=== PATIENT | male | born 2000 | race Caucasian/White ===

== ENCOUNTER 2023-02-13 10:19 | Emergency (ER) | payer MEDICAID ==
[2023-02-13] MEDS ORDERED: Ondansetron 4 MG Tab.DIS PO ONE (10:55)
[2023-02-13 11:29] LABS: CORONAVIRUS COVID-19 NAA NEGATIVE (NEGATIVE); INFLUENZA A NAA NEGATIVE (NEGATIVE); INFLUENZA B NAA NEGATIVE (NEGATIVE)
== END 2023-02-13 12:10 | disposition home or self-care (01) ==
LOC: MW.ED 10:19
DX: R11.2 Nausea with vomiting, unspecified (principal); Z20.822 Contact with and (suspected) exposure to COVID-19; Z88.0 Allergy status to penicillin; Z91.013 Allergy to seafood
CPT/HCPCS: 0240U; 71045; 99284; A9270; 99283